=== PATIENT | female | born 1970 | race Caucasian/White ===

== ENCOUNTER 2021-10-21 12:17 | Day surgery (SDC) | payer OTHER ==
[2021-10-21] VITALS (8 sets, daily range): BP systolic 125–136; BP diastolic 68–94; PULSE 60–65; TEMP 97.7–98.1
[~2021-10-21] VITALS: Ht 157.5 cm; Wt 90.6 kg
--- NOTE | 2021-10-21 12:46 | NUR ---
Dr Lim was called to verify part of consent. Patient thought the procedure was to be "short head of bicepts subpectoral biceps tenodesis". However Dr Lim verified that it matches the consent and is the Long head of biceps subpectoral biceps tenodesis. Dr Lim said she would speak to the patient before the procedure and re-explain things.
--- NOTE | 2021-10-21 18:05 | NUR ---
Patient returns to room 1 per cart from PACU and is awake but drowsy. Head of cart elevated 30 degrees. IV fluids infusing and site is free of redness or swelling. Temp 98.1 and room air sats 96%. Left arm in sling. Denies pain or nausea. States that the left arm is numb. Patient had block placed pre-operatively. Ice on the left shoulder. Siderails up x2 and call light in reach. Allowed to rest.
--- NOTE | 2021-10-21 18:20 | NUR ---
Resting without complaints of pain or nausea. States that her left hand feels cold. Left hand warm to touch. Nailbeds pink. Left arm remains in sling.
--- NOTE | 2021-10-21 19:50 | NUR ---
183 Pt asks to have head of bed raised senior care to help her "woosiness." This is completed, and the pt feels a little better. Pt has no complaints of pain or nausea. She feels dizzy if she moves her head. Pt requests applesauce and water. Pt's in room. 184 Pt asks to have head of bed raised higher so she's sitting up. This seems to help her even more. Pt is able to move her head more without feeling as dizzy. Pt taking food and drink very well. 190 Pt requests more applesauce and takes this well. 1919 Discharge instructions given to pt and pt's . All questions answered to their satisfaction. Handed to them are a thank you card, discharge instructions and follow-up PT instructions. Pt already has a follow-up appt scheduled with Dr. Lim. 1924 Pt ready to use the restroom. Pt ambulates with this RN and pt's assist to restroom without complication. Pt's remains with pt in restroom. 1929 Pt urinates and ambulates back to [facility] with assist. Pt assisted in getting dressed and placing sling back on. Pt or this RN holds pt's left arm in place while getting clothes changed. 1949 Pt transferred out of hospital via wheelchair and this RN with pt's accompanying to private vehicle driven by .
== END 2021-10-21 19:50 | disposition home or self-care (01) ==
LOC: SDCO 12:17
DX: S46.012A Strain of muscle(s) and tendon(s) of the rotator cuff of left shoulder, initial encounter (principal); M65.822 Other synovitis and tenosynovitis, left upper arm; Z79.82 Long term (current) use of aspirin; Z79.899 Other long term (current) drug therapy; Z80.9 Family history of malignant neoplasm, unspecified
CPT/HCPCS: A4619; C1713; J0690; J1885; J2250; J2704; J2795; J3010